=== PATIENT | female | born 1970 | race Caucasian/White ===

== ENCOUNTER 2024-08-04 11:57 | Emergency (ER) | payer BC ==
[~2024-08-04] VITALS: Ht 154.9 cm; Wt 63.5 kg
[2024-08-04] MEDS ORDERED: OMEP40CA PO (12:18)
[2024-08-04] MEDS ORDERED: ACETAMINOPHEN 500 MG TABLET ONE (12:31)
[2024-08-04] MEDS ORDERED: ASPIRIN 81 MG TAB.CHEW ONE (12:32)
[2024-08-04 12:33] LABS: BASOPHILS # (AUTO) 0.1 K/UL (0.0-0.2); EOSINOPHILS # (AUTO) 0.1 K/uL (0.0-0.7); HEMATOCRIT 41.5 % (31.2-41.9); HEMOGLOBIN 14.2 g/dL (10.9-14.3); LYMPHOCYTES # (AUTO) 2.4 K/uL (0.8-4.8); LYMPHOCYTES % (AUTO) 45.9 % (20.5-51.5); MEAN CORPUSCULAR HEMOGLOBIN 33.4 uug (24.7-32.8); MEAN CORPUSCULAR HGB CONC 34 g/dL (32.3-35.6); MONOCYTES # (AUTO) 0.5 K/uL (0.1-1.30); MONOCYTES % (AUTO) 8.5 % (0.0-11.0); NEUTROPHILS # (AUTO) 2.3 K/uL (1.8-8.9); NEUTROPHILS % (AUTO) 42.6 % (38.5-71.5); PLATELET COUNT (AUTO) 253 K/uL (179-408); RED BLOOD CELL COUNT(AUTO) 4.24 MIL/uL (3.63-4.92); RED CELL DISTRIBUTION WIDTH 12.8 % (12.3-17.7); WHITE BLOOD COUNT (AUTO) 5.3 K/uL (3.8-11.8)
[2024-08-04] MEDS: ACETAMINOPHEN 500 MG TABLET PO ONE (12:35)
[2024-08-04] MEDS: ASPIRIN 81 MG TAB.CHEW PO ONE ×2 (12:37)
[2024-08-04 12:44] VITALS: O2SAT 97
[2024-08-04 12:44] LABS: DIFFERENTIAL COMMENT 1
[2024-08-04 12:49] LABS: CALCIUM 9.6 mg/dL (8.5-10.1); CARBON DIOXIDE 26 mmol/L (21-32); CHLORIDE 101 mmol/L (98-107); CREATININE 0.7 mg/dL (0.6-1.3); GLUCOSE 96 mg/dL (74-106); POTASSIUM 3.6 mmol/L (3.5-5.1); SODIUM SERUM 125 mmol/L (136-145); UREA NITROGEN, BLOOD 14 mg/dL (7-18)
[2024-08-04 13:03] LABS: NT-PRO BNP 156 pg/mL (0-125)
== END 2024-08-04 13:01 | disposition left against medical advice (07) ==
LOC: ER 11:57
DX: R07.89 Other chest pain (principal); F17.200 Nicotine dependence, unspecified, uncomplicated; Z87.19 Personal history of other diseases of the digestive system; Z79.899 Other long term (current) drug therapy; Z88.7 Allergy status to serum and vaccine
CPT/HCPCS: 36415; 71045; 84484; 85025; A4606; A4663; A9150